=== PATIENT | female | born 1945 | race Caucasian/White ===

== ENCOUNTER 2017-02-13 00:29 | Inpatient (IN) | payer OTHER ==
[2017-02-13] VITALS (17 sets, daily range): BP systolic 112–144; BP diastolic 50–70
[~2017-02-13] VITALS: Ht 165.1 cm; Wt 129.0 kg
[2017-02-13 01:11] LABS: BASOPHIL % 0.1 % (0-2); PLATELET COUNT 239 x10^3mcL (130-400)
[2017-02-13] MEDS ORDERED: ASPIR LOW81 MG PO (01:11)
[2017-02-13] MEDS ORDERED: TRAMADOL HCL50 MG PO (01:11)
[2017-02-13] MEDS ORDERED: VITAMIN D32000 I2 PO (01:11)
[2017-02-13 01:12] LABS: RED CELL DISTRIBUTION WIDTH 15.6 % (11.5-14.5)
[2017-02-13] MEDS ORDERED: FUROSEMIDE40 MG PO (01:12)
[2017-02-13] MEDS ORDERED: CETIRIZINE HYDR10 MG PO (01:12)
[2017-02-13] MEDS ORDERED: LOSARTAN POTASS50 M1 PO (01:12)
[2017-02-13 01:35] LABS: CK-MB 9.8 ng/mL (0-3.6)
[2017-02-13 01:48] LABS: ALBUMIN 3.4 g/dL (3.4-5.0); ALKALINE PHOSPHATASE 84 U/L (46-116); BILIRUBIN TOTAL 1.15 mg/dL (0.20-1.00); CALCIUM 8.1 mg/dL (8.5-10.1); CARBON DIOXIDE 32.1 mmol/L (21-32); CHLORIDE SERUM 94 mmol/L (98-107); CREATININE SERUM 1.8 mg/dL (0.6-1.0); POTASSIUM SERUM 5.7 mmol/L (3.5-5.1); SODIUM SERUM 134 mmol/L (136-145); TOTAL PROTEIN, SERUM 7.1 g/dL (6.4-8.2)
[2017-02-13 01:49] LABS: ALT/SGPT 2998 U/L (14-59); GLUCOSE SERUM 516 mg/dL (74-106)
[2017-02-13 02:05] LABS: AST/SGOT 3627 U/L (15-37)
[2017-02-13 02:21] LABS: UA SPECIFIC GRAVITY 1.025 (1.005-1.035); microscopic required? YES; urine erythrocyte 2+ (NEGATIVE)
[2017-02-13 04:21] LABS: MAGNESIUM 2.5 mg/dL (1.8-2.4); PHOSPHOROUS 5.5 mg/dL (2.5-4.9)
[2017-02-13 04:22] LABS: CHOLESTEROL/HDL RATIO 3.2
[2017-02-13 04:23] LABS: AMPHETAMINE QUAL UR NONE DETECTED (NEG <=1000)
[2017-02-13 04:29] LABS: FREE T4 0.92 ng/dL (0.76-1.46)
[2017-02-13 04:33] LABS: T3 TOTAL 0.56 ng/mL
[2017-02-13] MEDS ORDERED: LANTUS SOLOS100 U/M1 SC (05:46)
[2017-02-13 06:08] LABS: BASOPHIL % 0.5 % (0-2); PLATELET COUNT 207 x10^3mcL (130-400)
[2017-02-13 06:09] LABS: RED CELL DISTRIBUTION WIDTH 14.7 % (11.5-14.5)
[2017-02-13 06:36] LABS: ALKALINE PHOSPHATASE 73 U/L (46-116); BILIRUBIN TOTAL 1.15 mg/dL (0.20-1.00); CALCIUM 8.1 mg/dL (8.5-10.1); CHLORIDE SERUM 97 mmol/L (98-107); CREATININE SERUM 1.6 mg/dL (0.6-1.0); GLUCOSE SERUM 409 mg/dL (74-106); POTASSIUM SERUM 4.4 mmol/L (3.5-5.1); SODIUM SERUM 137 mmol/L (136-145); TOTAL PROTEIN, SERUM 6.3 g/dL (6.4-8.2)
[2017-02-13 09:53] LABS: ALT/SGPT 3379 U/L (14-59)
[2017-02-13 10:30] LABS: AST/SGOT 5296 U/L (15-37)
[2017-02-14] VITALS (20 sets, daily range): BP systolic 94–140; BP diastolic 43–102
[2017-02-14 05:28] LABS: PLATELET COUNT 159 x10^3mcL (130-400)
[2017-02-14 05:32] LABS: BASOPHIL % 0 % (0-2); RED CELL DISTRIBUTION WIDTH 15.6 % (11.5-14.5)
[2017-02-14 05:55] LABS: ALKALINE PHOSPHATASE 67 U/L (46-116); AST/SGOT 834 U/L (15-37); BILIRUBIN TOTAL 0.92 mg/dL (0.20-1.00); CALCIUM 7.6 mg/dL (8.5-10.1); CHLORIDE SERUM 104 mmol/L (98-107); CREATININE SERUM 0.9 mg/dL (0.6-1.0); GLUCOSE SERUM 268 mg/dL (74-106); MAGNESIUM 1.9 mg/dL (1.8-2.4); POTASSIUM SERUM 3.5 mmol/L (3.5-5.1); SODIUM SERUM 142 mmol/L (136-145)
[2017-02-14 05:59] LABS: ALBUMIN 2.5 g/dL (3.4-5.0); ALT/SGPT 2141 U/L (14-59); TOTAL PROTEIN, SERUM 5.5 g/dL (6.4-8.2)
[2017-02-15] VITALS (18 sets, daily range): BP systolic 99–124; BP diastolic 47–63
[2017-02-15 05:40] LABS: BASOPHIL % 0.2 % (0-2); PLATELET COUNT 134 x10^3mcL (130-400)
[2017-02-15 05:43] LABS: RED CELL DISTRIBUTION WIDTH 15.5 % (11.5-14.5)
[2017-02-15 05:50] LABS: CALCIUM 7.5 mg/dL (8.5-10.1); CARBON DIOXIDE 33.7 mmol/L (21-32); CHLORIDE SERUM 104 mmol/L (98-107); CREATININE SERUM 1.2 mg/dL (0.6-1.0); GLUCOSE SERUM 346 mg/dL (74-106); MAGNESIUM 1.9 mg/dL (1.8-2.4); PHOSPHOROUS 2.4 mg/dL (2.5-4.9); SODIUM SERUM 142 mmol/L (136-145)
[2017-02-16] VITALS (19 sets, daily range): BP systolic 99–155; BP diastolic 36–83
[2017-02-16 04:47] LABS: BASOPHIL % 0.6 % (0-2); PLATELET COUNT 132 x10^3mcL (130-400)
[2017-02-16 04:49] LABS: RED CELL DISTRIBUTION WIDTH 15.4 % (11.5-14.5)
[2017-02-16 05:07] LABS: CALCIUM 7.8 mg/dL (8.5-10.1); CARBON DIOXIDE 33.6 mmol/L (21-32); CHLORIDE SERUM 105 mmol/L (98-107); GLUCOSE SERUM 328 mg/dL (74-106); PHOSPHOROUS 2.6 mg/dL (2.5-4.9); POTASSIUM SERUM 4.3 mmol/L (3.5-5.1); SODIUM SERUM 143 mmol/L (136-145)
[2017-02-16 20:17] LABS: microscopic required? YES; urine erythrocyte 3+ (NEGATIVE)
[2017-02-17] VITALS (16 sets, daily range): BP systolic 99–129; BP diastolic 49–76
[2017-02-17 05:03] LABS: BASOPHIL % 0.1 % (0-2); PLATELET COUNT 132 x10^3mcL (130-400); RED CELL DISTRIBUTION WIDTH 15.6 % (11.5-14.5)
[2017-02-17 05:04] LABS: CALCIUM 7.9 mg/dL (8.5-10.1); CARBON DIOXIDE 35.9 mmol/L (21-32); CHLORIDE SERUM 106 mmol/L (98-107); GLUCOSE SERUM 266 mg/dL (74-106); POTASSIUM SERUM 3.9 mmol/L (3.5-5.1); SODIUM SERUM 143 mmol/L (136-145)
[2017-02-17 11:44] LABS: BILIRUBIN DIRECT 0.31 mg/dL (0.0-0.2); BILIRUBIN TOTAL 0.6 mg/dL (0.20-1.00)
[2017-02-17 11:45] LABS: ALBUMIN 2.2 g/dL (3.4-5.0); TOTAL PROTEIN, SERUM 5.4 g/dL (6.4-8.2)
[2017-02-18] VITALS (20 sets, daily range): BP systolic 88–121; BP diastolic 39–68
[2017-02-18 05:33] LABS: PLATELET COUNT 144 x10^3mcL (130-400)
[2017-02-18 05:40] LABS: CALCIUM 8.3 mg/dL (8.5-10.1); CARBON DIOXIDE 32.9 mmol/L (21-32); CHLORIDE SERUM 105 mmol/L (98-107); GLUCOSE SERUM 303 mg/dL (74-106); POTASSIUM SERUM 4.3 mmol/L (3.5-5.1); SODIUM SERUM 140 mmol/L (136-145)
[2017-02-18 05:41] LABS: BASOPHIL % 0 % (0-2); RED CELL DISTRIBUTION WIDTH 15.9 % (11.5-14.5)
[2017-02-19] VITALS (17 sets, daily range): BP systolic 80–140; BP diastolic 39–89
[2017-02-19 05:28] LABS: BASOPHIL % 1.2 % (0-2); PLATELET COUNT 173 x10^3mcL (130-400)
[2017-02-19 05:34] LABS: RED CELL DISTRIBUTION WIDTH 15.6 % (11.5-14.5)
[2017-02-19 05:36] LABS: CARBON DIOXIDE 34.4 mmol/L (21-32); CHLORIDE SERUM 105 mmol/L (98-107); GLUCOSE SERUM 232 mg/dL (74-106); MAGNESIUM 1.9 mg/dL (1.8-2.4); PHOSPHOROUS 3.2 mg/dL (2.5-4.9); POTASSIUM SERUM 4.4 mmol/L (3.5-5.1); SODIUM SERUM 143 mmol/L (136-145)
[2017-02-20] VITALS (16 sets, daily range): BP systolic 101–146; BP diastolic 31–68
[2017-02-20 05:14] LABS: BASOPHIL % 0.9 % (0-2); PLATELET COUNT 200 x10^3mcL (130-400)
[2017-02-20 05:24] LABS: RED CELL DISTRIBUTION WIDTH 15.7 % (11.5-14.5)
[2017-02-20 05:38] LABS: CALCIUM 8.3 mg/dL (8.5-10.1); CARBON DIOXIDE 31.9 mmol/L (21-32); CHLORIDE SERUM 107 mmol/L (98-107); CREATININE SERUM 1.1 mg/dL (0.6-1.0); GLUCOSE SERUM 169 mg/dL (74-106); MAGNESIUM 2.1 mg/dL (1.8-2.4); PHOSPHOROUS 3.6 mg/dL (2.5-4.9); POTASSIUM SERUM 4.1 mmol/L (3.5-5.1); SODIUM SERUM 145 mmol/L (136-145)
[2017-02-21] VITALS (16 sets, daily range): BP systolic 98–152; BP diastolic 39–71
[2017-02-21 05:02] LABS: BASOPHIL % 0.7 % (0-2); PLATELET COUNT 223 x10^3mcL (130-400); RED CELL DISTRIBUTION WIDTH 15.5 % (11.5-14.5)
[2017-02-21 05:51] LABS: CALCIUM 8.8 mg/dL (8.5-10.1); CARBON DIOXIDE 34.6 mmol/L (21-32); CHLORIDE SERUM 107 mmol/L (98-107); CREATININE SERUM 1.1 mg/dL (0.6-1.0); GLUCOSE SERUM 103 mg/dL (74-106); MAGNESIUM 2.2 mg/dL (1.8-2.4); PHOSPHOROUS 3.4 mg/dL (2.5-4.9); POTASSIUM SERUM 3.6 mmol/L (3.5-5.1); SODIUM SERUM 145 mmol/L (136-145)
[2017-02-22] VITALS (17 sets, daily range): BP systolic 81–144; BP diastolic 41–74
[2017-02-22 05:24] LABS: BASOPHIL % 0.5 % (0-2); PLATELET COUNT 246 x10^3mcL (130-400)
[2017-02-22 05:26] LABS: RED CELL DISTRIBUTION WIDTH 15.1 % (11.5-14.5)
[2017-02-22 05:37] LABS: CALCIUM 8.6 mg/dL (8.5-10.1); CARBON DIOXIDE 32.9 mmol/L (21-32); CHLORIDE SERUM 107 mmol/L (98-107); CREATININE SERUM 0.8 mg/dL (0.6-1.0); GLUCOSE SERUM 192 mg/dL (74-106); PHOSPHOROUS 2.5 mg/dL (2.5-4.9); POTASSIUM SERUM 3.7 mmol/L (3.5-5.1); SODIUM SERUM 147 mmol/L (136-145)
[2017-02-23] VITALS (18 sets, daily range): BP systolic 98–141; BP diastolic 27–68
[2017-02-23 04:53] LABS: BASOPHIL % 0.8 % (0-2); PLATELET COUNT 276 x10^3mcL (130-400)
[2017-02-23 05:05] LABS: CALCIUM 8.6 mg/dL (8.5-10.1); CHLORIDE SERUM 108 mmol/L (98-107); CREATININE SERUM 0.7 mg/dL (0.6-1.0); GLUCOSE SERUM 176 mg/dL (74-106); MAGNESIUM 1.8 mg/dL (1.8-2.4); PHOSPHOROUS 2.3 mg/dL (2.5-4.9); POTASSIUM SERUM 3.9 mmol/L (3.5-5.1); SODIUM SERUM 145 mmol/L (136-145)
[2017-02-24] VITALS (20 sets, daily range): BP systolic 94–134; BP diastolic 37–73
[2017-02-24 05:20] LABS: PLATELET COUNT 305 x10^3mcL (130-400)
[2017-02-24 05:21] LABS: BASOPHIL % 0 % (0-2); RED CELL DISTRIBUTION WIDTH 15.2 % (11.5-14.5)
[2017-02-24 05:38] LABS: CALCIUM 8.6 mg/dL (8.5-10.1); CARBON DIOXIDE 33.4 mmol/L (21-32); CHLORIDE SERUM 106 mmol/L (98-107); CREATININE SERUM 0.7 mg/dL (0.6-1.0); GLUCOSE SERUM 83 mg/dL (74-106); MAGNESIUM 1.8 mg/dL (1.8-2.4); PHOSPHOROUS 2.7 mg/dL (2.5-4.9); POTASSIUM SERUM 3.8 mmol/L (3.5-5.1); SODIUM SERUM 145 mmol/L (136-145)
[2017-02-25] VITALS (17 sets, daily range): BP systolic 99–135; BP diastolic 47–67
[2017-02-25 05:19] LABS: BASOPHIL % 0.5 % (0-2); PLATELET COUNT 334 x10^3mcL (130-400); RED CELL DISTRIBUTION WIDTH 14.9 % (11.5-14.5)
[2017-02-25 05:30] LABS: CALCIUM 8.5 mg/dL (8.5-10.1); CARBON DIOXIDE 33.7 mmol/L (21-32); CHLORIDE SERUM 105 mmol/L (98-107); CREATININE SERUM 0.8 mg/dL (0.6-1.0); GLUCOSE SERUM 199 mg/dL (74-106); MAGNESIUM 1.9 mg/dL (1.8-2.4); POTASSIUM SERUM 4.1 mmol/L (3.5-5.1); SODIUM SERUM 142 mmol/L (136-145)
[2017-02-26] VITALS (18 sets, daily range): BP systolic 88–130; BP diastolic 44–69
[2017-02-26 05:40] LABS: BASOPHIL % 0.4 % (0-2); PLATELET COUNT 358 x10^3mcL (130-400)
[2017-02-26 05:52] LABS: CALCIUM 8.5 mg/dL (8.5-10.1); CARBON DIOXIDE 30.9 mmol/L (21-32); CHLORIDE SERUM 105 mmol/L (98-107); CREATININE SERUM 0.8 mg/dL (0.6-1.0); GLUCOSE SERUM 202 mg/dL (74-106); MAGNESIUM 1.8 mg/dL (1.8-2.4); PHOSPHOROUS 2.7 mg/dL (2.5-4.9); POTASSIUM SERUM 4.1 mmol/L (3.5-5.1); SODIUM SERUM 142 mmol/L (136-145)
[2017-02-26 05:58] LABS: RED CELL DISTRIBUTION WIDTH 14.9 % (11.5-14.5)
[2017-02-27] VITALS (19 sets, daily range): BP systolic 98–139; BP diastolic 46–81
[2017-02-27 05:14] LABS: BASOPHIL % 0.3 % (0-2); PLATELET COUNT 396 x10^3mcL (130-400)
[2017-02-27 05:15] LABS: RED CELL DISTRIBUTION WIDTH 15.1 % (11.5-14.5)
[2017-02-27 05:23] LABS: CALCIUM 8.6 mg/dL (8.5-10.1); CHLORIDE SERUM 105 mmol/L (98-107); CREATININE SERUM 0.8 mg/dL (0.6-1.0); GLUCOSE SERUM 185 mg/dL (74-106); MAGNESIUM 1.9 mg/dL (1.8-2.4); PHOSPHOROUS 2.5 mg/dL (2.5-4.9); POTASSIUM SERUM 4.2 mmol/L (3.5-5.1); SODIUM SERUM 144 mmol/L (136-145)
[2017-02-28] VITALS (16 sets, daily range): BP systolic 96–130; BP diastolic 47–69
[2017-02-28 05:00] LABS: BASOPHIL % 0.5 % (0-2); PLATELET COUNT 405 x10^3mcL (130-400); RED CELL DISTRIBUTION WIDTH 15.2 % (11.5-14.5)
[2017-02-28 05:19] LABS: CALCIUM 8.7 mg/dL (8.5-10.1); CARBON DIOXIDE 30.4 mmol/L (21-32); CHLORIDE SERUM 105 mmol/L (98-107); CREATININE SERUM 0.8 mg/dL (0.6-1.0); GLUCOSE SERUM 177 mg/dL (74-106); PHOSPHOROUS 2.7 mg/dL (2.5-4.9); POTASSIUM SERUM 4.2 mmol/L (3.5-5.1); SODIUM SERUM 143 mmol/L (136-145)
[2017-03-01] VITALS (11 sets, daily range): BP systolic 91–138; BP diastolic 40–68; Ht 165.1 cm; Wt 129.0 kg
[2017-03-01 05:06] LABS: CARBON DIOXIDE 33.7 mmol/L (21-32); CHLORIDE SERUM 103 mmol/L (98-107); CREATININE SERUM 0.8 mg/dL (0.6-1.0); GLUCOSE SERUM 239 mg/dL (74-106); PHOSPHOROUS 3.5 mg/dL (2.5-4.9); POTASSIUM SERUM 4.2 mmol/L (3.5-5.1); SODIUM SERUM 141 mmol/L (136-145)
[2017-03-01 05:07] LABS: BASOPHIL % 1.4 % (0-2); PLATELET COUNT 397 x10^3mcL (130-400)
[2017-03-01 05:12] LABS: RED CELL DISTRIBUTION WIDTH 14.9 % (11.5-14.5)
[2017-03-02 00:10] VITALS: BP 94/61
[2017-03-02 04:40] VITALS: BP 100/54
[2017-03-02 05:26] LABS: CALCIUM 8.8 mg/dL (8.5-10.1); CARBON DIOXIDE 30.2 mmol/L (21-32); CHLORIDE SERUM 103 mmol/L (98-107); CREATININE SERUM 0.7 mg/dL (0.6-1.0); GLUCOSE SERUM 196 mg/dL (74-106); MAGNESIUM 1.7 mg/dL (1.8-2.4); PHOSPHOROUS 3.7 mg/dL (2.5-4.9); POTASSIUM SERUM 4.1 mmol/L (3.5-5.1); SODIUM SERUM 141 mmol/L (136-145)
[2017-03-02 05:27] LABS: ALBUMIN 2.6 g/dL (3.4-5.0)
[2017-03-02 05:46] LABS: BASOPHIL % 0.2 % (0-2); PLATELET COUNT 415 x10^3mcL (130-400); RED CELL DISTRIBUTION WIDTH 14.6 % (11.5-14.5)
[2017-03-02 12:11] VITALS: BP 105/51
[2017-03-02 15:23] VITALS: BP 133/49
[2017-03-02 20:25] VITALS: BP 125/63
[2017-03-03 05:39] VITALS: BP 128/61
[2017-03-03 06:17] LABS: BASOPHIL % 0.5 % (0-2); PLATELET COUNT 386 x10^3mcL (130-400)
[2017-03-03 06:46] LABS: RED CELL DISTRIBUTION WIDTH 14.9 % (11.5-14.5)
[2017-03-03 07:04] LABS: CALCIUM 9.3 mg/dL (8.5-10.1); CARBON DIOXIDE 29.5 mmol/L (21-32); CHLORIDE SERUM 98 mmol/L (98-107); CREATININE SERUM 0.7 mg/dL (0.6-1.0); GLUCOSE SERUM 211 mg/dL (74-106); MAGNESIUM 2.6 mg/dL (1.8-2.4); PHOSPHOROUS 3.6 mg/dL (2.5-4.9); POTASSIUM SERUM 4.7 mmol/L (3.5-5.1); SODIUM SERUM 134 mmol/L (136-145)
[2017-03-03 08:45] VITALS: BP 111/48
[2017-03-03 09:27] VITALS: BP 111/48
[2017-03-03 17:41] VITALS: BP 144/59
[2017-03-03 21:19] VITALS: BP 130/62
[2017-03-04 05:41] VITALS: BP 124/57
[2017-03-04 07:14] LABS: BASOPHIL % 0.2 % (0-2); PLATELET COUNT 350 x10^3mcL (130-400); RED CELL DISTRIBUTION WIDTH 14.5 % (11.5-14.5)
[2017-03-04 07:50] LABS: CALCIUM 9.2 mg/dL (8.5-10.1); CARBON DIOXIDE 31.6 mmol/L (21-32); CHLORIDE SERUM 96 mmol/L (98-107); CREATININE SERUM 0.8 mg/dL (0.6-1.0); GLUCOSE SERUM 236 mg/dL (74-106); POTASSIUM SERUM 4.7 mmol/L (3.5-5.1); SODIUM SERUM 133 mmol/L (136-145)
[2017-03-04 09:17] VITALS: BP 120/46
[2017-03-04 17:13] VITALS: BP 104/43
[2017-03-04 21:21] VITALS: BP 127/46
[2017-03-05 05:21] VITALS: BP 115/43
[2017-03-05 06:33] LABS: BASOPHIL % 0.7 % (0-2); PLATELET COUNT 330 x10^3mcL (130-400); RED CELL DISTRIBUTION WIDTH 14.2 % (11.5-14.5)
[2017-03-05 06:47] LABS: CALCIUM 9.1 mg/dL (8.5-10.1); CARBON DIOXIDE 31.3 mmol/L (21-32); CHLORIDE SERUM 103 mmol/L (98-107); CREATININE SERUM 0.7 mg/dL (0.6-1.0); GLUCOSE SERUM 192 mg/dL (74-106); SODIUM SERUM 141 mmol/L (136-145)
[2017-03-05 09:48] VITALS: BP 123/56
[2017-03-05] MEDS ORDERED: LANTUS SOLOS100 U/M1 SC (13:53)
[2017-03-05] MEDS ORDERED: CEPACOL SORE TH1 LO4 MM (13:54)
[2017-03-05] MEDS ORDERED: LOVASTATIN20 MG PO (14:04)
[2017-03-05 14:35] VITALS: BP 125/39
[2017-03-05 15:26] VITALS: BP 125/39
[2017-03-05 17:54] VITALS: BP 125/56
== END 2017-03-05 20:37 | DRG 207 ==
LOC: ED 00:29 → IC 03:47 → DU 03-02 15:17
PROVIDERS: Emergency Medicine; Family Medicine; Internal Medicine; Internal Medicine Gastroenterology; ADMIT Family Medicine
PROC: 5A1955Z Respiratory Ventilation, Greater than 96 Consecutive Hours (ICD-10-PCS; principal; 2017-02-13)
PROC: 0BH17EZ Insertion of Endotracheal Airway into Trachea, Via Natural or Artificial Opening (ICD-10-PCS; 2017-02-13)
PROC: 05HM33Z Insertion of Infusion Device into Right Internal Jugular Vein, Percutaneous Approach (ICD-10-PCS; 2017-02-13)
PROC: B543ZZA Ultrasonography of Right Jugular Veins, Guidance (ICD-10-PCS; 2017-02-13)
DX: J96.00 Acute respiratory failure, unspecified whether with hypoxia or hypercapnia (principal); J69.0 Pneumonitis due to inhalation of food and vomit; N17.0 Acute kidney failure with tubular necrosis; E43 Unspecified severe protein-calorie malnutrition; J15.5 Pneumonia due to Escherichia coli; E87.1 Hypo-osmolality and hyponatremia; D68.69 Other thrombophilia; Z68.43 Body mass index [BMI] 50.0-59.9, adult; I24.8 Other forms of acute ischemic heart disease; K72.90 Hepatic failure, unspecified without coma; E11.65 Type 2 diabetes mellitus with hyperglycemia; E87.6 Hypokalemia; E83.39 Other disorders of phosphorus metabolism; E83.51 Hypocalcemia; I10 Essential (primary) hypertension; E78.5 Hyperlipidemia, unspecified; G47.33 Obstructive sleep apnea (adult) (pediatric); Z79.82 Long term (current) use of aspirin; R31.9 Hematuria, unspecified; E87.8 Other disorders of electrolyte and fluid balance, not elsewhere classified; D64.9 Anemia, unspecified; K73.8 Other chronic hepatitis, not elsewhere classified
CPT/HCPCS: 31500; 36556; 36600; 82962; 83880; 84439; 92526-GN; 92610; 94150; 97110-GP; 97116-GP; 97530-GP; A4628; C9113; J0330; J1642; J1644; J1815; J1885; J1940; J1956; J2060; J2185; J2250; J2270; J2405; J2543; J2704; J2765; J3010; J3475; J3490; J7030; J7040; J7042; J7050; J7620; Q0092; Q0163